=== PATIENT | female | born 1930 | race Caucasian/White ===

== ENCOUNTER 2018-07-19 11:43 | Emergency (ER) | payer MEDICARE ==
[~2018-07-19] VITALS: Ht 154.9 cm; Wt 59.1 kg
[2018-07-19 11:56] VITALS: Ht 154.9 cm; Wt 59.1 kg
[2018-07-19] MEDS ORDERED: NORVASC2.5 MG PO (11:58)
[2018-07-19] MEDS ORDERED: OMEPRAZOLE20 M1 PO (11:58)
[2018-07-19] MEDS ORDERED: LISINOPRIL2.5 MG PO (11:58)
[2018-07-19 12:47] LABS: BASOPHILS 0 % (0-2); EOSINOPHILS 5.8 % (0-7); HEMATOCRIT 39.4 % (36.0-48.0); HEMOGLOBIN 13.3 g/dL (12-16); IMMATURE GRANULOCYTES 0.4 % (0-5); LYMPHOCYTES 39.7 % (15-50); MCH 29.6 pg (26.0-34.0); MCHC 33.8 g/dL (31.0-37.0); MCV 87.8 fL (80.0-100.0); MONOCYTES 15.1 % (2-11); PLATELET COUNT 174 10x3/uL (130-400); RBC 4.49 10x6/uL (4.00-5.40); RDW 12.8 % (11.5-14.5); WBC 4.8 10x3/uL (4.8-10.8)
[2018-07-19 12:59] LABS: APTT 29.8 SECONDS (22.8-39.4); INR 0.98 (0.85-1.17); PROTIME 12.5 SECONDS (11.6-15.0)
[2018-07-19 13:05] LABS: ALBUMIN 3.7 g/dL (3.4-5.0); ALKALINE PHOSPHATASE 102 U/L (46-116); ALT (SGPT) 17 U/L (10-68); BILIRUBIN - TOTAL 0.36 mg/dL (0.2-1.3); CALC OSMOLALITY 288 mosm/kg (275-300); CALCIUM 9.5 mg/dL (8.5-10.1); CARBON DIOXIDE 27.7 mmol/L (21.0-32.0); CHLORIDE - SERUM 106 mmol/L (98-107); CREATININE - SERUM 1.1 mg/dL (0.6-1.3); GLUCOSE 116 mg/dL (74-106); POTASSIUM - SERUM 4.2 mmol/L (3.5-5.1); PROTEIN - SERUM 7.1 g/dL (6.4-8.2); SODIUM 143 mmol/L (136-145); UREA NITROGEN 21 mg/dL (7-18); eGFR NON AFRICAN AMERICAN 50 mL/min (90-120)
[2018-07-19 13:16] LABS: CKMB 1.1 U/L (0.0-3.6); CREATINE KINASE 114 UL (21-215); MAGNESIUM - SERUM 1.9 mg/dL (1.8-2.4); THYROID STIMULATING HORMONE 2.19 uIU/mL (0.36-3.74)
[2018-07-19 13:18] LABS: TROPONIN-I < 0.017 ng/mL (0.000-0.060)
[2018-07-19 17:04] VITALS: BP 142/61
== END 2018-07-19 17:05 | disposition other institution (70) ==
LOC: D.ER 11:43
PROVIDERS: Family Medicine
DX: I63.9 Cerebral infarction, unspecified (principal); R47.89 Other speech disturbances; H53.8 Other visual disturbances; I10 Essential (primary) hypertension; I45.10 Unspecified right bundle-branch block